=== PATIENT | female | born 1965 | race Caucasian/White ===

== ENCOUNTER 2020-01-14 10:45 | Outpatient (CLI) | payer OTHER, SELFPAY ==
--- NOTE | 2020-01-14 10:50 | MM_ITS ---
WS: [id number] Bilateral screening digital mammogram, 01/14/2020 Clinical Data: SCREENING Comparison: 10/26/2018, 05/27/2018, 05/15/2018, 04/30/2017, 04/22/2016, 04/14/2015, 04/05/2014. Findings: The breast parenchymal pattern shows fibroglandular tissue No spiculated masses or clustered calcific ations are seen. There are no secondary signs of carcinoma. MM/[place] [id number] Impression: 1. Negative bilateral mammogram unchanged. 2. Recommend annual screening mammograms. BIRADS: 1-Negative FOLLOW UP: 1 Year Follow-up The CAD material checker was used.
== END 2020-01-14 10:46 | disposition home or self-care (01) ==
LOC: RADSHAW 10:48
PROVIDERS: PCP Nurse Practitioner; Visit Provider Nurse Practitioner
DX: Z12.31 Encounter for screening mammogram for malignant neoplasm of breast (principal)
CPT/HCPCS: 77067

== ENCOUNTER → 2020-01-26 11:45 | Outpatient (BNVA) | payer OTHER, SELFPAY | PROVIDERS: PCP Nurse Practitioner; Visit Provider Nurse Practitioner | DX: R10.10 Upper abdominal pain, unspecified (principal); F41.8 Other specified anxiety disorders | CPT/HCPCS: 80053; 81000; 84443; 85025 ==

== ENCOUNTER → 2020-01-27 08:23 | Outpatient (BNVA) | payer OTHER, SELFPAY | PROVIDERS: PCP Nurse Practitioner; Visit Provider Nurse Practitioner | DX: R74.8 Abnormal levels of other serum enzymes (principal) | CPT/HCPCS: 86705; 86706; 86709; 86803; 87340 ==

== ENCOUNTER → 2020-01-31 10:22 | Outpatient (BNVA) | payer OTHER, SELFPAY | PROVIDERS: PCP Nurse Practitioner; Visit Provider Nurse Practitioner | DX: R74.8 Abnormal levels of other serum enzymes (principal); R50.9 Fever, unspecified | CPT/HCPCS: 80053; 86000; 86617; 86666; 86757 ==

== ENCOUNTER 2020-02-01 07:47 | Outpatient (CLI) | payer OTHER, SELFPAY ==
--- NOTE | 2020-02-01 08:00 | US_ITS ---
WS: [id number] RIGHT UPPER QUADRANT ULTRASOUND HISTORY: liver enzymes increased COMPARISON: None available. Liver: 12.2 cm in length. Normal size and echogenicity with no intrahepatic dilatation. No mass. Gallbladder: Normally distended gallbladder with numerous stones. No gallbladder wall thickening or e sarahy. CBD: 0.5 cm Pancreas: Normal size and echogenicity. Right kidney: 8.7 cm in length. Normal echogenicity with no mass or hydronephrosis. Aorta and IVC: Unremarkable. No ascites. US/US liver [id number] IMPRESSION: 1. Cholelithiasis without evidence for acute cholecystitis. 2. Common bile duct is top normal size.
== END 2020-02-01 07:48 | disposition home or self-care (01) ==
PROVIDERS: PCP Nurse Practitioner; Visit Provider Nurse Practitioner
DX: R74.8 Abnormal levels of other serum enzymes (principal); K80.20 Calculus of gallbladder without cholecystitis without obstruction
CPT/HCPCS: 76705

== ENCOUNTER → 2020-02-09 13:37 | Outpatient (BNVA) | payer OTHER, SELFPAY | PROVIDERS: PCP Nurse Practitioner; Visit Provider Nurse Practitioner | DX: R74.8 Abnormal levels of other serum enzymes (principal) | CPT/HCPCS: 80053 ==

== ENCOUNTER 2021-02-15 10:17 | Outpatient (CLI) | payer OTHER, SELFPAY ==
--- NOTE | 2021-02-15 10:21 | MM_ITS ---
WS: [id number] BILATERAL DIGITAL SCREENING MAMMOGRAPHY WITH CAD CLINICAL INFORMATION: SCREENING HISTORY: Screening mammogram. No current complaints. COMPARISON: January 14, 2020 TECHNIQUE: Bilateral CC and MLO views. FINDINGS: The breasts are composed of heterogeneous fibroglandular density tissue, which can limit the detectio n of small underlying mass lesions. Punctate and lucent centered calcifications. No suspicious mass, asymmetry, calcifications, or architectural distortion. No evidence of malignancy. MM/[place] [id number] IMPRESSION: BI-RADS: 2-Benign FOLLOW UP: 1 Year Follow-up Recommend return to annual screening mammography.
== END 2021-02-15 10:18 | disposition home or self-care (01) ==
LOC: RADSHAW 10:19
PROVIDERS: PCP Nurse Practitioner; Visit Provider Nurse Practitioner
DX: Z12.31 Encounter for screening mammogram for malignant neoplasm of breast (principal)
CPT/HCPCS: 77067

== ENCOUNTER → 2021-04-20 11:17 | Outpatient (BNVA) | payer OTHER, SELFPAY | PROVIDERS: PCP Nurse Practitioner; Visit Provider Nurse Practitioner | DX: R53.83 Other fatigue (principal); Z13.6 Encounter for screening for cardiovascular disorders; F41.8 Other specified anxiety disorders; J30.2 Other seasonal allergic rhinitis; J30.89 Other allergic rhinitis | CPT/HCPCS: 80053; 80061; 82607; 84443; 85025 ==

== ENCOUNTER → 2021-10-15 09:52 | Outpatient (BNVA) | payer OTHER, SELFPAY | PROVIDERS: PCP Nurse Practitioner; Visit Provider Nurse Practitioner | DX: E55.9 Vitamin D deficiency, unspecified (principal); E78.5 Hyperlipidemia, unspecified | CPT/HCPCS: 80053; 80061; 82306; 82607; 85025 ==

== ENCOUNTER → 2022-01-10 10:24 | Outpatient (BNVA) | payer OTHER, SELFPAY | PROVIDERS: PCP Nurse Practitioner; Visit Provider Nurse Practitioner Family | DX: R21 Rash and other nonspecific skin eruption (principal); R74.8 Abnormal levels of other serum enzymes | CPT/HCPCS: 82607 ==

== ENCOUNTER 2022-03-01 09:49 | Outpatient (CLI) | payer OTHER, SELFPAY ==
--- NOTE | 2022-03-01 09:55 | MM_ITS ---
WS: [id number] VIEWS: MLO and CC views both breasts. 3D digital tomosynthesis is also included in this exam. Comparison made with prior exam of . Findings: There was no sign of mass, architectural distortion or suspicious calcification in either breast. Sc attered fibroglandular densities MM/[place] [id number] Impression: BI-RADS: 2-Benign FOLLOW-UP: 1 Year Follow-up This mammogram was also analyzed by the Computer Aided Detection System R2 Imag e Wash Oil Cooler Operator.
== END 2022-03-01 09:50 | disposition home or self-care (01) ==
LOC: RAD 09:50
PROVIDERS: PCP Nurse Practitioner; Visit Provider Nurse Practitioner
DX: Z12.31 Encounter for screening mammogram for malignant neoplasm of breast (principal)
CPT/HCPCS: 77063; 77067

== ENCOUNTER → 2022-04-01 11:36 | Outpatient (BNVA) | payer OTHER, SELFPAY | PROVIDERS: PCP Nurse Practitioner; Visit Provider Nurse Practitioner | DX: E78.5 Hyperlipidemia, unspecified (principal); J30.89 Other allergic rhinitis; J30.2 Other seasonal allergic rhinitis; L29.9 Pruritus, unspecified; F41.8 Other specified anxiety disorders | CPT/HCPCS: 80053; 80061 ==

== ENCOUNTER 2022-06-13 10:15 | Day surgery (SDC) | payer OTHER, SELFPAY ==
[2022-06-12 15:48] VITALS: BMI 23.9
[2022-06-13] VITALS (8 sets, daily range): BP systolic 102–141; BP diastolic 59–98; PULSE 54–66; RESP 14–18; TEMP 35.9–36.8; O2SAT 96–99
[2022-06-13] MEDS: sodium chloride 0.9% 1,000 ML 30 ML IV (10:48)
--- NOTE | 2022-06-13 10:54 | ANES.PREANE2 ---
Pre-Anesthetic Assessment Height/Weight: Height 1.6 m Weight 61.235 kg Temp Pulse Resp BP Pulse Ox O2 Del Method 96.7 F L 57 L 16 102/59 97 06/13/22 10:43 06/13/22 10:43 06/13/22 10:43 06/13/22 10:43 06/13/22 10:43 06/13/22 10:43 Preop Diagnosis: Symptomatic cholelithiasis Operation Date: 06/13/22 13:10 Pro[place] Procedures [place] [address]15 lap preeti K80.20(Not Applicable) - Shawn Wolf DO Familial anesthetic complications: None Was Beta Laci taken within 24 hours: N/A Was Clonidine taken within 24 hours: N/A Last intake: Intake Last Liquid Date 06/12/22 Last Liquid Time 22:00 Last Solid Date 06/12/22 Last Solid Time 21:00 Social No alcohol and No tobacco Exam alert, oriented x 3, clear to auscultation bilaterally and regular rate & rhythm Airway Mallampati: Class III Dentition: full Pulmonary None reported CV/HEM None reported GI Gastroesophageal Reflux Disease Metabolic Hyperlipidemia Anesthetic Plan ASA status: 2 Anesthesia: General Risk of > 500 ml blood loss (7ml/kg in children): No Medications/Allergies Home Medications Medication Instructions Recorded Confirmed Last Taken Type promethazine 25 mg tablet 25 mg PO DAILY PRN Pain 11/09/19 06/13/22 06/12/22 History verapamil 80 mg tablet 80 mg PO TID 11/09/19 05/21/22 06/12/22 History rizatriptan 10 mg tablet (Maxalt) See Rx Instructions PO .COMPLEX 01/26/20 06/13/22 1 Week Ago History ~06/06/22 naproxen sodium 550 mg tablet 550 mg PO DAILY 10/19/20 06/13/22 3 Days Ago History ~06/10/22 rimegepant 75 mg disintegrating 75 mg PO PRN migraine headache 04/20/21 05/21/22 Unknown History tablet (Nurtec ODT) nystatin-triamcinolone 100,000 1 applic topical TID #30 grams 01/15/22 06/13/22 06/12/22 Rx unit/gram-0.1 % topical ointment azelastine-fluticasone 137 mcg-50 1 spray intranasal BID #69 grams 04/01/22 06/13/22 06/12/22 Rx mcg/spray nasal spray (Dymista) famotidine 20 mg tablet (Pepcid) 20 mg PO BID 04/01/22 06/13/22 06/12/22 History hydroxyzine HCl 25 mg tablet 25 mg PO .at bedtime PRN itching 04/01/22 06/13/22 06/12/22 Rx #90 tabs loratadine 10 mg tablet (Claritin) 10 mg PO DAILY 04/01/22 06/13/22 06/12/22 History rosuvastatin 5 mg tablet (Crestor) 5 mg PO DAILY #90 tabs 04/01/22 06/13/22 06/12/22 Rx venlafaxine 37.5 mg 37.5 mg PO DAILY #90 caps 04/01/22 06/13/22 06/12/22 Rx capsule,extended release 24 hr Allergies Allergy/AdvReac Type Severity Reaction Status Date / Time measles, mumps, and rubella Allergy ALGY-Rash Verified 06/13/22 10:29 vaccine Current Medications Generic Name Dose Route Start Last Admin Trade Name Freq PRN Reason Stop Dose Admin Sodium Chloride 1,000 mls @ 30 mls/hr 06/13/22 10:30 06/13/22 10:48 Sodium Chloride 0.9% IV 06/14/22 10:29 30 mls/hr .Q24H JUAN R Administration PFSH Anesthesia Medical History (Updated 05/21/22 @ 15:41 by Shawn Wolf DO) Anxiety with depression Cholelithiasis Chronic migraine Dyslipidemia History of nonmelanoma skin cancer Seasonal and perennial allergic rhinitis Symptomatic cholelithiasis Surgical History History of colonoscopy 2016 History of hysterectomy without BSO Family History Mother Cancer Colon, liver and pancreatic Grandfather Cancer melanoma Family/Other Cancer stomach Denies family history of Diabetes Bleeding disorder Hypertension Social History Smoking and tobacco status: never smoked Second hand smoke exposure: No Smoking risk assessment/counseling performed?: No Alcohol intake: never Desire information about alcohol rehabilitation?: No Counseling given: No Desire information about substance/drug rehabilitation?: No Counseling given: No Adopted: No Caregiver/support person: No Lives independently: Yes Household members: spouse Housing: House Marital status: Number of children: 2 service: No Current occupational exposures/hazards: No History of recent travel: No Current gender identity: Female Data Anesthesia Cardiac Studies: No Data to Display
--- NOTE | 2022-06-13 13:38 | W.PM.OPSUD ---
Surgery/Procedure H&P Update DATE OF PROCEDURE: June 13, 2022 DATE H&P PERFORMED: 05/21/22 PREOP DIAGNOSIS: Symptomatic cholelithiasis PLANNED PROCEDURE: Operation Date: 06/13/22 13:10 Proposed Procedures p 22846 lap preeti K80.20(Not Applicable) - Shawn Wolf DO
[2022-06-13] MEDS: ceFAZolin 2,000 MG in sodium chloride 0.9% (plus) 50 ML 100 MG IV (13:42)
--- NOTE | 2022-06-13 14:35 | P.OP_ITS ---
Operative Report Date of procedure: June 13, 2022 Pre-op diagnosis: Preop Diagnosis Symptomatic cholelithiasis Post-op diagnosis: same Procedure done: Laparoscopic cholecystectomy Specimens removed/disposition: Gallbladder Surgeon: Dr. Shawn Wolf DO Anesthesia: General Estimated blood loss (mL): 5 Complications: None apparent Brief History: This is a very pleasant 56-year-old female who was found to have symptomatic cholelithiasis. Laparoscopic cholecystectomy was indicated. The risks and benefits of procedure were explained and documented. Procedure: Patient was wheeled into the operative room and placed on the OR table in a supine position. Abdomen was inspected prepped and draped in usual sterile fashion. Time-out was performed and all present were in agreement. A 15 blade scalp was used to make a stab incision in the left upper quadrant and intra- abdominal insufflation was achieved using a Veress needle. After localizing the tissue incisions were made and a 5 millimeter trocar was placed into the umbilicus as well as 2 in the right upper quadrant. A 12 millimeter trocar was placed in the epigastrium. Gallbladder was grasped and elevated. The triangle of Calot was carefully dissected using blunt dissection and electrocautery until the triangle of Calot clearly identified. The cystic duct was clipped proximally and double clipped distally. The duct was then ligated proximally. The cystic artery was doubly clipped and ligated. The gallbladder was then removed from the liver bed using electrocautery. The gallbladder was removed from the abdomen using an Endo-Catch bag through the epigastric incision. The liver bed was inspected and no bleeding was seen. The abdomen was irrigated and suctioned. All ports removed. Skin was washed and dried. Incisions were closed with 3-0 and 4-O Vicryl in a subcuticular interrupted fashion. Skin glue was applied. Patient tolerated the procedure well.
--- NOTE | 2022-06-13 15:03 | SUR.PHASEI ---
1458 PT AWAKES TO VOICE DENIES PAIN AND NAUSEA VERBALLY, MONITOR SB-SR WITH NO ECTOPY, VSS ABDOMEN SOFT WITH 4 SITES WITH SKIN GLUE, PT ON RA WITH GOOD RESPIRATIONS NOTED IV TO RT ARM #20 WITH NS 100ML AT KVO RATE PER GRAVITY, ID BRACELET TO LT WRIST , PT ID'D WITH 2 IDENTIFIERS.
--- NOTE | 2022-06-13 15:58 | ANE.PACU2 ---
Inpatient post-anesthesia follow up: Airway intact: Yes Vital signs: Temperature 98.2 F Pulse Rate 59 Respiratory Rate 18 Blood Pressure 131/81 Pulse Oximetry 96 Oxygen Delivery Me thod Room Air Oxygen Flow Rate Fraction of Inspir ed Oxygen Hydration adequate: Yes Nausea and vomiting: No Pain level: 1 Mental status: Baseline
== END 2022-06-13 16:10 | disposition home or self-care (01) ==
PROVIDERS: PCP Nurse Practitioner; Visit Provider Surgery
PROC: 0FT44ZZ Resection of Gallbladder, Percutaneous Endoscopic Approach (ICD-10-PCS; CPT 47562; principal; 2022-06-13 13:10)
DX: K80.10 Calculus of gallbladder with chronic cholecystitis without obstruction (principal); K21.9 Gastro-esophageal reflux disease without esophagitis; E78.5 Hyperlipidemia, unspecified
CPT/HCPCS: 47562; 88304; J0690; J1100; J2405; J2704; J2710; J3010; J3490; J7030

== ENCOUNTER → 2022-09-16 10:03 | Outpatient (BNVA) | payer OTHER, SELFPAY | PROVIDERS: PCP Nurse Practitioner; Visit Provider Nurse Practitioner Family | DX: E78.5 Hyperlipidemia, unspecified (principal); Z12.11 Encounter for screening for malignant neoplasm of colon; L29.9 Pruritus, unspecified; G47.9 Sleep disorder, unspecified; F41.9 Anxiety disorder, unspecified; J06.9 Acute upper respiratory infection, unspecified; K21.9 Gastro-esophageal reflux disease without esophagitis | CPT/HCPCS: 80053; 80061; 84443; 85025 ==

== ENCOUNTER → 2023-03-11 16:33 | Outpatient (BNVA) | payer OTHER, SELFPAY | PROVIDERS: PCP Nurse Practitioner Family; Visit Provider Nurse Practitioner Family | DX: F41.8 Other specified anxiety disorders (principal); E78.5 Hyperlipidemia, unspecified | CPT/HCPCS: 80053; 80061; 84443; 85025 ==

== ENCOUNTER 2023-03-13 09:31 | Outpatient (CLI) | payer OTHER, SELFPAY ==
--- NOTE | 2023-03-13 09:58 | MM_ITS ---
WS: [id number] BILATERAL SCREENING DIGITAL TOMOSYNTHESIS MAMMOGRAM WITH CAD HISTORY: SCREENING COMPARISON: 03/01/2022, 02/15/2021 Bilateral CC and MLO views with tomosynthesis and synthetic mammography submitted. Computer aided det ection analyzed. Breast composition: The breasts are heterogeneously dense, which may obscure small masses. No suspici ous masses, microcalcifications or architectural distortion. Benign bilateral calcifications. IMPRESSION: MM/[place] [id number] BI-RADS: 2-Benign FOLLOW UP: 1 Year Follow-up
== END 2023-03-13 09:32 | disposition home or self-care (01) ==
LOC: RAD 09:32
PROVIDERS: PCP Nurse Practitioner Family; Visit Provider Nurse Practitioner
DX: Z12.31 Encounter for screening mammogram for malignant neoplasm of breast (principal)
CPT/HCPCS: 77063; 77067

== ENCOUNTER → 2023-04-01 10:22 | Outpatient (BNVA) | payer OTHER, SELFPAY | PROVIDERS: PCP Nurse Practitioner Family; Visit Provider Nurse Practitioner Family | DX: I88.9 Nonspecific lymphadenitis, unspecified (principal) | CPT/HCPCS: 85025 ==

== ENCOUNTER 2023-06-06 09:45 | Emergency (ER) | payer OTHER, SELFPAY ==
[2023-06-06 10:02] VITALS: BP 121/80; PULSE 81; RESP 17; TEMP 36.9; O2SAT 97
--- NOTE | 2023-06-06 10:17 | ECG_ITS ---
[facility] Test Date: 2023-06-06 Pat Name: Monica Mitchell Department: Room: Gender: Female Herd Tester: : 1965 Requested By: Rick Narayan Order Number: [id number] Vinay MD: Racquel Benitez M.D. Measurements Intervals [place] Rate: 91 P: 42 AK: 142 QRS: 39 QRSD: 76 T: 34 QT: 353 QTc: 435 Interpretive Statements SINUS RHYTHM NONSPECIFIC T-WAVE ABNORMALITY No previous ECG available for comparison Electronically Signed On 06-06-2023 16:07:09 COIL CONNECTOR by Racquel Benitez M.D. [id number]
--- NOTE | 2023-06-06 10:17 | CT_ITS ---
WS: [id number] CT HEAD NONCONTRAST HISTORY: trauma TECHNIQUE: Contiguous axial imaging performed through the brain in 2.5 mm imaging. Bone and soft tiss ue windows. Sagittal and coronal reformats reviewed. All CT scans at [facility] use at least one of these dose optimization techniques: automated exposure control; mA and/or kV adjustment per pa tient size (includes targeted exams where dose is matched to clinical indication); or iterative recon struction. DLP: 984.88 mGy.cm COMPARISON: None available. No acute intracranial hemorrhage, midline shift or mass effect. No atrophy or prior infarcts or herniation. Ventricles: Normal size with no hydrocephalus. No intra displacement the cerebellar tonsils. Paranasal sinuses: As visualized are clear. Mastoid air cells: Well pneumatized. Calvarium and scalp: Skull is intact with no soft tissue edema or swelling. No blood or fluid along the internal auditory canals or surrounding the inner ear ossicles. IMPRESSION: Negative head CT.
--- NOTE | 2023-06-06 10:17 | ED_ITS ---
Documented by User: Rick Nelson DO 06/08/23 17:11 HPI - General Adult 2 General: Chief complaint: Ear Stated complaint: right ear injury Time Seen by Provider: 06/06/23 09:46 Source: patient Mode of arrival: ambulatory History of Present Illness: 57-year-old female presents to the [facility] ency room after a fall at home. Around 4 AM this morning she got up she was in the bathroom got lightheaded and dizzy and fell she hit the right ear on the edge of something as she fell. She may have had a brief loss of consciousness. She has had flulike symptoms for the last 2 to 3 days. No chest pain or shortness of breath at this time unsure of last tetanus Onset (ago): minute(s) Location: head Associated symptoms: Reports headache(s); Deny chest pain, confusion, cough, diaphoresis, decreased appetite, dyspnea, fevers/chills, malaise, nausea, rash, palpitations, seizures, short of breath, syncope, vomiting or weakness Review of Systems 2 Const: Denies: malaise or diaphoresis Card: Denies: chest pain, palpitations or syncope Resp: Denies: dyspnea GI: Denies: nausea or vomiting Musc: Denies: neck pain or back pain Skin/Breast: Denies: rash Neuro: Reports: headache(s); Denies: confusion PFSH ED 2 PFSH: Medical History Insomnia Acid reflux Symptomatic cholelithiasis Seasonal and perennial allergic rhinitis History of nonmelanoma skin cancer Cholelithiasis Anxiety with depression Dyslipidemia Chronic migraine Surgical History Hx of cholecystectomy History of hysterectomy without BSO History of colonoscopy 2016 Family History Mother Cancer Colon, liver and pancreatic Grandfather Cancer melanoma Family/Other Cancer stomach Denies family history of Diabetes Bleeding disorder Hypertension Social History Smoking and tobacco/nicotine status: never used tobacco/nicotine Second hand smoke exposure: No Alcohol intake: never Substance/Drug Use: unknown Adopted: No Caregiver/support person: No Lives independently: Yes Household members: spouse Housing: House Marital status: Number of children: 2 service: No Current occupational exposures/hazards: No Do you think of yourself as: Straight/Heterosexual Current gender identity: Female Physical Exam 2 Const: GENERAL APPEARANCE: cooperative and comfortable O RIENTATION/CONSCIOUSNESS: Yes awake, Yes oriented to person, Yes oriented to place and Yes oriented to time HENMT: COMMON NORMALS: normocephalic and hearing grossly normal bilaterally HEAD & SCALP: normocephalic OTHER: Outer helix right ear laceration closed by PA, see Nelia Gallo's notes. Resp: COMMON NORMALS: normal respiratory effort, No retractions, No use of accessory muscles and clear to auscultation bilaterally AUSCULTATION: clear to auscultation bilaterally Cardio: COMMON NORMALS: regular rate, regular rhythm and No murmurs present (Cardio) RATE: regular rate RHYTHM: regular rhythm GI: COMMON NORMALS: Soft to palpation and No hepatosplenomegaly present A USCULTATION: Yes normoactive bowel sounds PALPATION: Yes Soft to palpation, No Tenderness to palpation present (GI), No Guarding due to palpation present (GI) and Yes No hepatosplenomegaly present Extremity: COMMON NORMALS: normal to inspection, capillary refill normal, no clubbing, cyanosis or edema, no calf tenderness and no pedal edema Neuro: SENSORIUM/ORIENTATION: Yes oriented to person, Yes oriented to place and Yes oriented to time Skin: COMMON NORMALS: no rashes or lesions noted GENERAL SKIN EXAM: no rashes or lesions noted Course 2 Vital Signs: Vital signs: Vital Signs Temperature 98.5 F 06/06/23 10:02 Pulse Rate 84 06/06/23 11:10 Respiratory Rate 18 06/06/23 11:10 Blood Pressure 121/80 06/06/23 11:10 Pulse Oximetry 95 06/06/23 11:10 Oxygen Delivery Me thod Room Air 06/06/23 11:10 [facility] - General Adult Medical Decision Making Labs and imaging was reviewed. You are sutured by Nelia Gallo. Wound care instructions given no other acute injury discharged home I was consulted by Dr. Nelson to repair patient's right ear laceration. This was completed as documented. Other than procedure I did not actively participate in patient's care ES Medical Records I reviewed the patient's medical records. Lab Data I reviewed the patient's lab results. 06/06/23 10:51 06/06/23 10:51 Laboratory Results WBC 10.92 10^3/uL (3.29-11.43) 06/06/23 10:51 RBC 4.29 10^6/uL (3.85-5.65) 06/06/23 10:51 Hgb 12.70 g/dL (11.27-16.99) 06/06/23 10:51 Hct 38.0 % (36-47) 06/06/23 10:51 MCV 88.6 fl (85-98) 06/06/23 10:51 MCH 29.6 pg (27-33) 06/06/23 10:51 MCHC 33.4 g/dL (30-55) 06/06/23 10:51 RDW 13.2 % (12.1-15.1) 06/06/23 10:51 Plt Count 200 10^3/cmm (157-399) 06/06/23 10:51 MPV 10.1 fL (7.4-10.4) 06/06/23 10:51 Neut % (Auto) 81.2 % 06/06/23 10:51 Lymph % (Auto) 11.1 % 06/06/23 10:51 [place] % (Auto) 7.2 % 06/06/23 10:51 Eos % (Auto) 0.0 % 06/06/23 10:51 Baso % (Auto) 0.2 % 06/06/23 10:51 Neut # (Auto) 8.87 10^3/uL (1.8-7.7) H 06/06/23 10:51 Lymph # (Auto) 1.2 10^3/uL (0.8-4.8) 06/06/23 10:51 [place] # (Auto) 0.8 10^3/uL (0.2-0.9) 06/06/23 10:51 Eos # (Auto) 0.0 10^3/uL (0.0-0.8) 06/06/23 10:51 Baso # (Auto) 0.0 10^3/uL (0.0-0.1) 06/06/23 10:51 Nucleated RBC % (auto) 0 % 06/06/23 10:51 Nucleated RBCs # 0.0 /100WBC 06/06/23 10:51 Sodium 137 mmol/L (136-145) 06/06/23 10:51 Potassium 3.5 mmol/L (3.5-5.1) 06/06/23 10:51 Chloride 99 mmol/L (98-107) 06/06/23 10:51 Carbon Dioxide 28 mmol/L (22-29) 06/06/23 10:51 Anion Gap 13.5 (5-19) 06/06/23 10:51 BUN 10 mg/dL (6-20) 06/06/23 10:51 Creatinine 0.5 mg/dL (0.5-0.9) 06/06/23 10:51 GFR Calculation 128.1 mL/min (90-130) 06/06/23 10:51 Glucose 99 mg/dL (65-115) 06/06/23 10:51 Calculated Osmolality 283 mOsm/kg (285-295) L 06/06/23 10:51 Calcium 8.8 mg/dL (8.5-10.5) 06/06/23 10:51 Total Bilirubin 0.5 mg/dL (0.15-1.2) 06/06/23 10:51 AST 21 U/L (0-32) 06/06/23 10:51 ALT 25 U/L (0-33) 06/06/23 10:51 Alkaline Phosphatase 107 U/L (35-105) H 06/06/23 10:51 Total Protein 6.5 g/dL (6.6-8.7) L 06/06/23 10:51 Albumin 4.2 g/dL (3.5-5.2) 06/06/23 10:51 Globulin 2.3 g/dL (1.3-4.6) 06/06/23 10:51 Urine Color Yellow (Yellow) 06/06/23 11:35 Urine Appearance Sl hazy (CLEAR) A 06/06/23 11:35 Urine pH 5 (5-7) 06/06/23 11:35 Ur Specific [place] 1.025 (1.005-1.030) 06/06/23 11:35 Urine Protein Trace (Negative) 06/06/23 11:35 Urine Glucose (UA) Norm (Normal) 06/06/23 11:35 Urine Ketones 1+ (Negative) H 06/06/23 11:35 Urine Blood Neg (Negative) 06/06/23 11:35 Urine Nitrate Negative (Negative) 06/06/23 11:35 Urine Bilirubin Neg (Negative) 06/06/23 11:35 Urine Urobilinogen Norm mg/dL (Negative) 06/06/23 11:35 Ur Leukocyte Esterase Negative (Negative) 06/06/23 11:35 Urine RBC 0-4 /hpf (0-2) H 06/06/23 11:35 Urine WBC 0-4 /hpf (0-5) H 06/06/23 11:35 Ur Squamous Epith Cells 0-4 /hpf (0-5) H 06/06/23 11:35 Amorphous Sediment 3+ /hpf 06/06/23 11:35 Urine Bacteria Trace /hpf (NONE) 06/06/23 11:35 Urine Mucus 2+ /hpf 06/06/23 11:35 Influenza Type A Ag negative (Negative) 06/06/23 11:00 Influenza Type B Ag negative (Negative) 06/06/23 11:00 Discharge Plan Discharge Patient Disposition: Home Clinical Impression: Fall, Laceration of ear Condition: Stable Prescriptions: No Action verapamil 80 mg tablet 80 mg PO TID promethazine 25 mg tablet 25 mg PO DAILY PRN (Reason: Pain) rizatriptan [Maxalt] 10 mg tablet See Rx Instructions PO .COMPLEX Rx Instructions: take 1 tab at onset of headache; if no relief may repeat 1 tab after at least 2 hrs; max = 3 tabs/24 hr PO naproxen sodium 550 mg tablet 550 mg PO DAILY Hold Instructions: Resume on 06/16/22. Nurtec ODT 75 mg tablet,disintegrating 75 mg PO PRN (Reason: migraine headache) hydroxyzine HCl 25 mg tablet 25 mg PO .at bedtime PRN (Reason: itching) Qty: 90 1RF famotidine [Pepcid] 20 mg tablet 20 mg PO BID Qty: 90 1RF cyclobenzaprine 10 mg tablet 10 mg PO BID PRN (Reason: muscle spasm) Qty: 14 0RF loratadine [Claritin] 10 mg tablet 10 mg PO DAILY azelastine-fluticasone [Dymista] 137-50 mcg/spray spray,non-aerosol 1 spray intranasal BID Qty: 69 1RF Rx Instructions: administer into each nostril triamcinolone acetonide 0.1 % ointment 1 applic topical TID Qty: 15 2RF amoxicillin-pot clavulanate 875-125 mg tablet 1 tab PO BID 10 Days Qty: 20 0RF nystatin-triamcinolone 100,000-0.1 unit/gram-% ointment 1 applic topical TID Qty: 30 0RF Rx Instructions: large area thighs rosuvastatin [Crestor] 5 mg tablet 5 mg PO DAILY Qty: 90 1RF escitalopram oxalate [Lexapro] 10 mg tablet 10 mg PO DAILY Qty: 90 1RF Discharge Orders: Discharge ED (Routine); Ordered 06/06/23 Ordered By: Rick Nelson Referrals: Allie Francis FNP-C [Primary Care Provider] - Discharge Diet: Usual diet Discharge Activity: Increase activity as tolerated Patient Instructions: Opioid Safety, Pain Management Activity Restrictions/Additional Instructions: Thank you for choosing [facility] for your healthcare needs today. Please realize this is an emergency room and that we are providing you with a medical screening exam and this may not be complete and all inclusive of all the testing and or work up that you may need to determine your ailment or severity of your illness. It is very important that you follow up as instructed or that you return to the Emergency Department should you have concerns or if your condition changes or worsens in any way. You were seen today after a fall with a laceration in your ear. CT of the head was negative. Other labs and imaging are unremarkable. Recommend sutures to be removed in 5 to 7 days. Apply topical antibiotic ointment [id number] to the sutures. Return if you have further problems. Coding Level of Care Code ED Air Control/Anti Air Warfare Officer for Chg Fwd Documented by User: [email or web address] Perez 06/06/23 11:59 HPI - General Adult 2 General: Chief complaint: Ear Stated complaint: right ear injury Time Seen by Provider: 06/06/23 09:46 PFSH ED 2 PFSH: Medical History Insomnia Acid reflux Symptomatic cholelithiasis Seasonal and perennial allergic rhinitis History of nonmelanoma skin cancer Cholelithiasis Anxiety with depression Dyslipidemia Chronic migraine Surgical History Hx of cholecystectomy History of hysterectomy without BSO History of colonoscopy 2016 Family History Mother Cancer Colon, liver and pancreatic Grandfather Cancer melanoma Family/Other Cancer stomach Denies family history of Diabetes Bleeding disorder Hypertension Social History Smoking and tobacco/nicotine status: never used tobacco/nicotine Second hand smoke exposure: No Alcohol intake: never Substance/Drug Use: unknown Adopted: No Caregiver/support person: No Lives independently: Yes Household members: spouse Housing: House Marital status: Number of children: 2 service: No Current occupational exposures/hazards: No Do you think of yourself as: Straight/Heterosexual Current gender identity: Female Procedures Laceration Laceration 1: Site: other (ear) Side (If applicable): right Size (cm): 3.5 Description: flap and irregular Depth: simple, single layer Local Anesthetic: lidocaine 1% Amount of anesthesia used (mL): 2.0 Pre-repair: wound explored and irrigated extensively Skin layer closed with: nylon Size (cm): 6-0 Number of sutures: 8 Technique: simple, interrupted Course 2 Vital Signs: Vital signs: Vital Signs Temperature 98.5 F 06/06/23 10:02 Pulse Rate 84 06/06/23 11:10 Respiratory Rate 18 06/06/23 11:10 Blood Pressure 121/80 06/06/23 11:10 Pulse Oximetry 95 06/06/23 11:10 Oxygen Delivery Me thod Room Air 06/06/23 11:10 MDM - General Adult Medical Decision Making I was consulted by Dr. Nelson to repair patient's right ear laceration. This was completed as documented. Other than procedure I did not actively participate in patient's care ES Lab Data 06/06/23 10:51 06/06/23 10:51 Laboratory Results WBC 10.92 10^3/uL (3.29-11.43) 06/06/23 10:51 RBC 4.29 10^6/uL (3.85-5.65) 06/06/23 10:51 Hgb 12.70 g/dL (11.27-16.99) 06/06/23 10:51 Hct 38.0 % (36-47) 06/06/23 10:51 MCV 88.6 fl (85-98) 06/06/23 10:51 MCH 29.6 pg (27-33) 06/06/23 10:51 MCHC 33.4 g/dL (30-55) 06/06/23 10:51 RDW 13.2 % (12.1-15.1) 06/06/23 10:51 Plt Count 200 10^3/cmm (157-399) 06/06/23 10:51 MPV 10.1 fL (7.4-10.4) 06/06/23 10:51 Neut % (Auto) 81.2 % 06/06/23 10:51 Lymph % (Auto) 11.1 % 06/06/23 10:51 [place] % (Auto) 7.2 % 06/06/23 10:51 Eos % (Auto) 0.0 % 06/06/23 10:51 Baso % (Auto) 0.2 % 06/06/23 10:51 Neut # (Auto) 8.87 10^3/uL (1.8-7.7) H 06/06/23 10:51 Lymph # (Auto) 1.2 10^3/uL (0.8-4.8) 06/06/23 10:51 [place] # (Auto) 0.8 10^3/uL (0.2-0.9) 06/06/23 10:51 Eos # (Auto) 0.0 10^3/uL (0.0-0.8) 06/06/23 10:51 Baso # (Auto) 0.0 10^3/uL (0.0-0.1) 06/06/23 10:51 Nucleated RBC % (auto) 0 % 06/06/23 10:51 Nucleated RBCs # 0.0 /100WBC 06/06/23 10:51 Sodium 137 mmol/L (136-145) 06/06/23 10:51 Potassium 3.5 mmol/L (3.5-5.1) 06/06/23 10:51 Chloride 99 mmol/L (98-107) 06/06/23 10:51 Carbon Dioxide 28 mmol/L (22-29) 06/06/23 10:51 Anion Gap 13.5 (5-19) 06/06/23 10:51 BUN 10 mg/dL (6-20) 06/06/23 10:51 Creatinine 0.5 mg/dL (0.5-0.9) 06/06/23 10:51 GFR Calculation 128.1 mL/min (90-130) 06/06/23 10:51 Glucose 99 mg/dL (65-115) 06/06/23 10:51 Calculated Osmolality 283 mOsm/kg (285-295) L 06/06/23 10:51 Calcium 8.8 mg/dL (8.5-10.5) 06/06/23 10:51 Total Bilirubin 0.5 mg/dL (0.15-1.2) 06/06/23 10:51 AST 21 U/L (0-32) 06/06/23 10:51 ALT 25 U/L (0-33) 06/06/23 10:51 Alkaline Phosphatase 107 U/L (35-105) H 06/06/23 10:51 Total Protein 6.5 g/dL (6.6-8.7) L 06/06/23 10:51 Albumin 4.2 g/dL (3.5-5.2) 06/06/23 10:51 Globulin 2.3 g/dL (1.3-4.6) 06/06/23 10:51 Urine Color Yellow (Yellow) 06/06/23 11:35 Urine Appearance Sl hazy (CLEAR) A 06/06/23 11:35 Urine pH 5 (5-7) 06/06/23 11:35 Ur Specific [place] 1.025 (1.005-1.030) 06/06/23 11:35 Urine Protein Trace (Negative) 06/06/23 11:35 Urine Glucose (UA) Norm (Normal) 06/06/23 11:35 Urine Ketones 1+ (Negative) H 06/06/23 11:35 Urine Blood Neg (Negative) 06/06/23 11:35 Urine Nitrate Negative (Negative) 06/06/23 11:35 Urine Bilirubin Neg (Negative) 06/06/23 11:35 Urine Urobilinogen Norm mg/dL (Negative) 06/06/23 11:35 Ur Leukocyte Esterase Negative (Negative) 06/06/23 11:35 Urine RBC 0-4 /hpf (0-2) H 06/06/23 11:35 Urine WBC 0-4 /hpf (0-5) H 06/06/23 11:35 Ur Squamous Epith Cells 0-4 /hpf (0-5) H 06/06/23 11:35 Amorphous Sediment 3+ /hpf 06/06/23 11:35 Urine Bacteria Trace /hpf (NONE) 06/06/23 11:35 Urine Mucus 2+ /hpf 06/06/23 11:35 Influenza Type A Ag negative (Negative) 06/06/23 11:00 Influenza Type B Ag negative (Negative) 06/06/23 11:00 All radiology interpretation(s) finalized by discharge Discharge Plan Discharge Patient Disposition: Home Clinical Impression: Fall, Laceration of ear Condition: Stable Prescriptions: No Action verapamil 80 mg tablet 80 mg PO TID promethazine 25 mg tablet 25 mg PO DAILY PRN (Reason: Pain) rizatriptan [Maxalt] 10 mg tablet See Rx Instructions PO .COMPLEX Rx Instructions: take 1 tab at onset of headache; if no relief may repeat 1 tab after at least 2 hrs; max = 3 tabs/24 hr PO naproxen sodium 550 mg tablet 550 mg PO DAILY Hold Instructions: Resume on 06/16/22. Nurtec ODT 75 mg tablet,disintegrating 75 mg PO PRN (Reason: migraine headache) hydroxyzine HCl 25 mg tablet 25 mg PO .at bedtime PRN (Reason: itching) Qty: 90 1RF famotidine [Pepcid] 20 mg tablet 20 mg PO BID Qty: 90 1RF cyclobenzaprine 10 mg tablet 10 mg PO BID PRN (Reason: muscle spasm) Qty: 14 0RF loratadine [Claritin] 10 mg tablet 10 mg PO DAILY azelastine-fluticasone [Dymista] 137-50 mcg/spray spray,non-aerosol 1 spray intranasal BID Qty: 69 1RF Rx Instructions: administer into each nostril triamcinolone acetonide 0.1 % ointment 1 applic topical TID Qty: 15 2RF amoxicillin-pot clavulanate 875-125 mg tablet 1 tab PO BID 10 Days Qty: 20 0RF nystatin-triamcinolone 100,000-0.1 unit/gram-% ointment 1 applic topical TID Qty: 30 0RF Rx Instructions: large area thighs rosuvastatin [Crestor] 5 mg tablet 5 mg PO DAILY Qty: 90 1RF escitalopram oxalate [Lexapro] 10 mg tablet 10 mg PO DAILY Qty: 90 1RF Discharge Orders: Discharge ED (Routine); Ordered 06/06/23 Ordered By: Rick Nelson Referrals: Allie Francis FNP-C [Primary Care Provider] - Discharge Diet: Usual diet Discharge Activity: Increase activity as tolerated Patient Instructions: Opioid Safety, Pain Management Activity Restrictions/Additional Instructions: Thank you for choosing [facility] for your healthcare needs today. Please realize this is an emergency room and that we are providing you with a medical screening exam and this may not be complete and all inclusive of all the testing and or work up that you may need to determine your ailment or severity of your illness. It is very important that you follow up as instructed or that you return to the Emergency Department should you have concerns or if your condition changes or worsens in any way. You were seen today after a fall with a laceration in your ear. CT of the head was negative. Other labs and imaging are unremarkable. Recommend sutures to be removed in 5 to 7 days. Apply topical antibiotic ointment [id number] to the sutures. Return if you have further problems. Coding Level of Care Code ED Air Control/Anti Air Warfare Officer for Jaime Gamez
--- NOTE | 2023-06-06 11:03 | XR_ITS ---
WS: [id number] Cervical spine, 3 views, 06/06/2023 Clinical Data: trauma Comparison: None. Findings: No compression fractures are seen. There is degenerative disc narrowing at C5-C6 with anter ior and posterior osteophytes. There is no prevertebral soft tissue swelling. The odontoid is unremar kable. The soft tissues of the neck and the lung apices are normal. 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
[2023-06-06] MEDS: lidocaine 1% INJ 10 mL (per mL) IM (11:09)
[2023-06-06 11:10] VITALS: BP 121/80; PULSE 84; RESP 18; O2SAT 95
[2023-06-06 11:12] LABS: Basophils % 0.2 %; Lymphocytes # 1.2 10^3/uL (0.8-4.8); Lymphocytes % 11.1 %; Mean Corpuscular HGB Conc 33.4 g/dL (30-55); Mean Corpuscular Hemoglobin 29.6 pg (27-33); Mean Corpuscular Volume 88.6 fl (85-98); Mean Platelet Volume 10.1 fL (7.4-10.4); Monocytes # 0.8 10^3/uL (0.2-0.9); Monocytes % 7.2 %; Neutrophils # 8.87 10^3/uL (1.8-7.7); Neutrophils % 81.2 %; Nucleated Red Blood Cells % 0 %; Platelet Count 200 10^3/cmm (157-399); Red Blood Count 4.29 10^6/uL (3.85-5.65); Red Cell Distribution Width 13.2 % (12.1-15.1); White Blood Count 10.92 10^3/uL (3.29-11.43)
[2023-06-06] MEDS: tetanus-dipt-pertussis 0.5 mL SDV IM (11:29)
[2023-06-06 11:35] LABS: Influenza A by IFA negative (Negative); Influenza B by IFA negative (Negative)
[2023-06-06 11:35] LABS: Alanine Aminotransferase 25 U/L (0-33); Albumin Level 4.2 g/dL (3.5-5.2); Alkaline Phosphatase 107 U/L (35-105); Anion Gap 13.5 (5-19); Aspartate Amino Transferase 21 U/L (0-32); Blood Urea Nitrogen 10 mg/dL (6-20); Calcium 8.8 mg/dL (8.5-10.5); Carbon Dioxide 28 mmol/L (22-29); Chloride 99 mmol/L (98-107); Globulin 2.3 g/dL (1.3-4.6); Glomerular Filtration Rate 128.1 mL/min (90-130); Glucose 99 mg/dL (65-115); Osmolality Calculated 283 mOsm/kg (285-295); Potassium 3.5 mmol/L (3.5-5.1); Sodium 137 mmol/L (136-145); Total Bilirubin 0.5 mg/dL (0.15-1.2); Total Protein 6.5 g/dL (6.6-8.7)
[2023-06-06 12:13] LABS: Add Urine Microscopic? YES; Bilirubin Urine Neg (Negative); Blood Urine Neg (Negative); Glucose Urine UA Norm (Normal); Ketones Urine 1+ (Negative); Leukocyte Esterase Urine Negative (Negative); Nitrate Urine Negative (Negative); Protein Urine Trace (Negative); Specific Gravity, Urine 1.025 (1.005-1.030); Urine Appearance SL Hazy (CLEAR); Urine Color Yellow (Yellow); Urobilinogen Urine Norm (Negative); pH Urine 5 (5-7)
[2023-06-06 12:14] LABS: Add Urine Culture? No; Amorphous Sediment Urine 3+ /hpf; Bacteria Urine TRACE /hpf; Mucus Urine 2+ /hpf; RBC Urine 0-4 /hpf (0-2); Squamous Epithelial Cell Urine 0-4 /hpf (0-5); WBC Urine 0-4 /hpf (0-5)
== END 2023-06-06 11:59 | disposition home or self-care (01) ==
PROVIDERS: Emergency Provider Family Medicine; PCP Nurse Practitioner Family
DX: S01.311A Laceration without foreign body of right ear, initial encounter (principal); W18.39XA Other fall on same level, initial encounter; Y92.002 Bathroom of unspecified non-institutional (private) residence as the place of occurrence of the external cause; Z23 Encounter for immunization; E78.5 Hyperlipidemia, unspecified
CPT/HCPCS: 12013; 36415; 70450; 72040; 80053; 81001; 85025; 87804; 90471; 90715; 93005; 99285

== ENCOUNTER → 2023-06-11 11:00 | Outpatient (BNVA) | payer OTHER, SELFPAY | PROVIDERS: PCP Nurse Practitioner Family; Visit Provider Nurse Practitioner Family | DX: R19.7 Diarrhea, unspecified (principal) | CPT/HCPCS: 87324; 87493 ==

== ENCOUNTER → 2023-07-15 12:09 | Outpatient (BNVA) | payer OTHER, SELFPAY | PROVIDERS: PCP Nurse Practitioner Family; Visit Provider Nurse Practitioner Family | DX: R19.7 Diarrhea, unspecified (principal) | CPT/HCPCS: 87045; 87177; 87209; 87427; 87449 ==

== ENCOUNTER → 2023-07-25 11:25 | Outpatient (BNVA) | payer OTHER, SELFPAY | PROVIDERS: PCP Nurse Practitioner Family; Visit Provider Nurse Practitioner Family | DX: A04.72 Enterocolitis due to Clostridium difficile, not specified as recurrent (principal) | CPT/HCPCS: 87493 ==

== ENCOUNTER → 2023-08-27 09:37 | Outpatient (BNVA) | payer OTHER, SELFPAY | PROVIDERS: PCP Nurse Practitioner Family; Visit Provider Nurse Practitioner Family | DX: E78.5 Hyperlipidemia, unspecified (principal); K21.9 Gastro-esophageal reflux disease without esophagitis | CPT/HCPCS: 80053; 80061; 84443; 85025 ==

== ENCOUNTER 2024-04-06 09:23 | Outpatient (CLI) | payer OTHER, SELFPAY ==
--- NOTE | 2024-04-06 09:20 | MM_ITS ---
WS: [id number] BILATERAL 3D TOMOSYNTHESIS DIGITAL SCREENING MAMMOGRAPHY WITH CAD CLINICAL INFORMATION: SCREENING HISTORY: Screening mammogram. No current complaints. COMPARISON: 2022 TECHNIQUE: Bilateral CC and MLO views. FINDINGS: Scattered fibroglandular densities bilaterally. No suspicious focal mass, asymmetry, calcifications, or architectural distortion. No evidence of malignancy. Incidental punctate and lucent centered calci fications. MM/MM scr tomosynthesis [id number] IMPRESSION: DENSITY: There are scattered areas of fibroglandular density. BI-RADS: 2 - Benign. FOLLOW UP: 1 Year Follow-up Recommend return to annual screening mammography.
== END 2024-04-06 09:24 | disposition home or self-care (01) ==
LOC: MOBLMAM 09:25
PROVIDERS: PCP Nurse Practitioner Family; Visit Provider Nurse Practitioner Family
DX: Z12.31 Encounter for screening mammogram for malignant neoplasm of breast (principal); R92.323 Mammographic fibroglandular density, bilateral breasts
CPT/HCPCS: 77063; 77067

== ENCOUNTER → 2024-10-11 12:01 | Outpatient (BNVA) | payer OTHER, SELFPAY | PROVIDERS: PCP Nurse Practitioner Family; Visit Provider Nurse Practitioner Family | DX: M25.511 Pain in right shoulder (principal); G89.29 Other chronic pain | CPT/HCPCS: 73030 ==

== ENCOUNTER 2024-10-21 15:26 | Outpatient (CLI) | payer OTHER, SELFPAY ==
--- NOTE | 2024-10-21 16:00 | MR_ITS ---
WS: [id number] MRI RIGHT SHOULDER HISTORY: M25.511 - Pain in right shoulder COMPARISON: RIGHT shoulder 10/11/2024 TECHNIQUE: Multiplanar sequences of the shoulder joint are submitted. Mild AC joint arthritis. Narrowing of the joint space with osteophytes. Small subchondral cyst in the distal clavicle. Mild downsloping of the acromion with enthesopathy encroaching upon the rotator cuff. Very small amount of fluid in the subacromial and subdeltoid bursa. Small caliber but normal position biceps tendon. No os acromion. Mild narrowing of the glenohumeral joint. No rotator cuff muscle atrophy or edema. No rotator cuff tear is identified. Mild tendinopathy in the distal supraspinatus, just distal to the acromial impingement. No labral tear. No thickening of the coracohumeral ligament. MR/MR shoulder RT wo con* [id number] IMPRESSION: 1. Mild AC joint arthritis. 2. Downsloping of the acromion with mild impingement upon the supraspinatus te ndon. 3. Mild tendinopathy in the distal supraspinatus tendon just distal to the lev el of the impingement. 4. Small caliber biceps tendon but it is normally positioned in the bicipital groove. 5. No rotator cuff tear.
== END 2024-10-21 15:27 | disposition home or self-care (01) ==
PROVIDERS: PCP Nurse Practitioner Family; Visit Provider Nurse Practitioner Family
DX: M19.011 Primary osteoarthritis, right shoulder (principal); G89.29 Other chronic pain; M25.60 Stiffness of unspecified joint, not elsewhere classified; R93.7 Abnormal findings on diagnostic imaging of other parts of musculoskeletal system; M75.41 Impingement syndrome of right shoulder; M67.813 Other specified disorders of tendon, right shoulder; M25.711 Osteophyte, right shoulder; M85.411 Solitary bone cyst, right shoulder; M77.8 Other enthesopathies, not elsewhere classified
CPT/HCPCS: 73221

== ENCOUNTER → 2025-02-09 14:43 | Outpatient (BNVA) | payer OTHER, SELFPAY | PROVIDERS: PCP Nurse Practitioner Family; Visit Provider Nurse Practitioner Family | DX: K21.9 Gastro-esophageal reflux disease without esophagitis (principal); J30.89 Other allergic rhinitis; F41.8 Other specified anxiety disorders; E78.5 Hyperlipidemia, unspecified | CPT/HCPCS: 80053; 80061; 84443; 85025 ==

== ENCOUNTER 2025-05-10 09:59 | Outpatient (CLI) | payer OTHER, SELFPAY ==
--- NOTE | 2025-05-10 10:20 | MM_ITS ---
WS: [id number] BILATERAL 3D TOMOSYNTHESIS DIGITAL SCREENING MAMMOGRAPHY WITH CAD CLINICAL INFORMATION: SCREENING HISTORY: Screening mammogram. No current complaints. COMPARISON: 2023 TECHNIQUE: Bilateral CC and MLO views. FINDINGS: Scattered fibroglandular densities bilaterally. No suspicious focal mass, asymmetry, calcifications, or architectural distortion. No evidence of malignancy. Incidental punctate and lucent centered calcifications. MM/MM scr tomosynthesis [id number] IMPRESSION: DENSITY: There are scattered areas of fibroglandular density. BI-RADS: 2 - Benign. FOLLOW UP: 1 Year Follow-up Recommend return to annual screening mammography.
== END 2025-05-10 10:00 | disposition home or self-care (01) ==
LOC: MOBLMAM 10:01
PROVIDERS: PCP Nurse Practitioner Family; Visit Provider Nurse Practitioner Family
DX: Z12.31 Encounter for screening mammogram for malignant neoplasm of breast (principal); R92.323 Mammographic fibroglandular density, bilateral breasts; R92.1 Mammographic calcification found on diagnostic imaging of breast
CPT/HCPCS: 77063; 77067